=== PATIENT | female | born 1990 | race Caucasian/White ===

== ENCOUNTER 2016-08-17 23:19 | Emergency (ER) | payer BC, OTHER ==
[~2016-08-17] VITALS: Ht 180.3 cm; Wt 86.2 kg
[2016-08-17] MEDS ORDERED: ASPIRIN 81 MG TAB.CHEW PO ONE (23:45)
[2016-08-17] MEDS ORDERED: LORAZEPAM 1 MG TABLET. PO ONE (23:45)
[2016-08-17 23:53] LABS: NEG OBC UR NEG; POS OBC UR POS
[2016-08-18 00:12] VITALS: BP 132/75
--- NOTE | 2016-08-18 00:16 | PHYS DOC ---
Past Medical History Past Medical History: Anxiety, Depression, Migraines Past Surgical History: Tonsillectomy, Other Additional Past Surgical Histo: ADENOIDS Alcohol Use: Occasionally Drug Use: None Adult General Chief Complaint Chief Complaint: CHEST PAIN HPI HPI 26-year-old female presenting the emergency department with chest pain that started approximately 20 minutes prior to arrival. It is sharp shooting pain. Moderate intermittent and associated with mild shortness of breath. She has a history of panic attacks the past. She denies unilateral leg swelling hemoptysis personal or family history of DVT. No history of diabetes hypertension hyperlipidemia. Never smoker. Review of Systems Review of Systems Constitutional: Denies fever or chills Eyes: Denies change in visual acuity, redness, or eye pain [] HENT: Denies nasal congestion or sore throat [] Respiratory: Denies cough or shortness of breath Cardiovascular: No additional information not addressed in HPI [] GI: Denies abdominal pain, nausea, vomiting, bloody stools or diarrhea : Denies dysuria or hematuria Musculoskeletal: Denies back pain or joint pain [] Integument: Denies rash or skin lesions Neurologic: Denies headache, focal weakness or sensory changes Endocrine: Denies polyuria or polydipsia [] Current Medications Current Medications Current Medications Medications (Trade) Dose Ordered Sig/José Miguel Start Time Stop Time Status Last Admin Dose Admin Aspirin (Children'S Aspirin) 324 mg 1X ONCE 08/17/16 23:45 08/17/16 23:46 DC 08/17/16 23:49 324 MG Lorazepam (Ativan) 1 mg 1X ONCE 08/17/16 23:45 08/17/16 23:46 DC 08/17/16 23:49 1 MG Allergies Allergies Allergies Coded Allergies Type Severity Reaction Last Updated Verified No Known Drug Allergies 08/11/15 No Physical Exam Physical Exam Constitutional: Well developed, well nourished, no acute distress, non-toxic appearance. HENT: Normocephalic, atraumatic, bilateral external ears normal, oropharynx moist, no oral exudates, nose normal. Eyes: PERRLA, EOMI, conjunctiva normal, no discharge. Neck: Normal range of motion, no tenderness, supple, no stridor. [] Cardiovascular:Heart rate regular rhythm, no murmur Lungs & Thorax: Bilateral breath sounds clear to auscultation . No wheezing or crackles. Abdomen: Bowel sounds normal, soft, no tenderness, no masses, no pulsatile masses. Skin: Warm, dry, no erythema, no rash. [] Back: No tenderness, no CVA tenderness. Extremities: No tenderness, no cyanosis, no clubbing, ROM intact, no edema. Neurologic: Alert and oriented X 3, normal motor function, normal sensory function, no focal deficits noted. [] Psychologic: Affect normal, judgement normal, mood normal. [] Current Patient Data Vital Signs Vital Signs Date Time Temp Pulse Resp B/P Pulse Ox O2 Delivery O2 Flow Rate FiO2 08/18/16 00:12 94 20 132/75 97 Room Air 08/17/16 23:30 97.7 97.7 Lab Values Laboratory Tests Test 08/17/16 23:33 Urine Test Negative (NEG) EKG EKG Sinus rhythm with a tachycardic rate. Chase normal. Intervals normal. ST segments congruent. [] Radiology/Procedures Radiology/Procedures []Chest x-ray reviewed by myself shows no evidence of infiltrate or pneumothorax present. No acute cardiopulmonary process present. Course & Med Decision Making Course & Med Decision Making Pertinent Labs and Imaging studies reviewed. (See chart for details) 26-year-old female presenting to the emergency department today with chest pain. Vital signs showed mild hypertension. She denied a history of hypertension. Physical exam unremarkable. EKG and chest x-ray normal. The patient was given Ativan as she appeared anxious in the room. Her symptoms improved with Ativan and aspirin. She was up in discharged home to follow up with PCP over the next 2-3 days if her symptoms continued. Dragon Disclaimer Dragon Disclaimer This electronic medical record was generated, in whole or in part, using a voice recognition dictation system. Departure Departure Impression: Primary Impression: Chest pain Disposition: HOME, SELF-CARE Condition: STABLE Referrals: KEVIN FREEMAN (PCP) Patient Instructions: Chest Pain (Nonspecific) Additional Instructions: Thank you for allowing us to participate in your care today. Followup with your primary care physician in 3 days if your symptoms do not improve. If you do not have a primary care provider you can ask for a list of our primary care providers. Return to the emergency department you have any new or concerning findings. This should be evaluated by the primary care physician and any necessary consulting services for continued management within a few days after discharge. Return to emergency room if you have any new or concerning symptoms including but not limited to fever, chills, nausea, vomiting, intractable pain, any new rashes, chest pain, shortness of air, uncontrolled bleeding, difficulty breathing, and/or vision loss. RICCI KEVIN MD Aug 18, 2016 00:16
--- NOTE | 2016-08-18 08:43 | RAD ---
2 view CXR: Clinical indications: Chest pain today. Findings: No acute lung infiltrate or pleural effusion or pulmonary edema or lung mass or pneumothorax is seen. The heart size, pulmonary vasculature, mediastinum and both iris are unremarkable. The osseous structures appear intact. Impression: No acute radiographic abnormality is seen.
--- NOTE | 2016-08-18 11:40 | EKG ---
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
== END 2016-08-18 00:35 | disposition home or self-care (01) ==
LOC: ER 23:20
DX: R07.89 Other chest pain (principal); R06.02 Shortness of breath; F41.9 Anxiety disorder, unspecified; F32.9 Major depressive disorder, single episode, unspecified; G43.909 Migraine, unspecified, not intractable, without status migrainosus
CPT/HCPCS: 71020; 81025; 93005; 99285-25

== ENCOUNTER 2016-08-27 08:02 | Day surgery (SDC) | payer OTHER ==
[~2016-08-27] VITALS: Ht 177.8 cm; Wt 86.2 kg
[~2016-08-27 08:02] MED LIST: 0.9 % SODIUM CHLORIDE 50 ML VIAL. IJ ONE; ALPR0.25 PO; BUPIVACAINE-EPI 0.5%-1:200000 50 ML VIAL. ONE; CEFAZOLIN 2GM PREMIX 50 ML IV ONE; DEXAMETHASONE SOD PHOS 20 MG/5 ML VIAL. ONE; DIPHENHYDRAMINE 50 MG/ML VIAL IV PRN; DOCU100C5 PO; FENTANYL PF 100 MCG/2 ML VIAL. IV PRN; FENTANYL PF 250 MCG/5 ML VIAL. ONE; GLUCAGON,HUMAN RECOMBINANT 1 MG/ML VIAL. ONE; HALOPERIDOL LACT 5 MG/ML VIAL. IVP PRN; HYDROMORPHONE 2 MG/ML VIAL. IV PRN; IOHEXOL 300 MG/ML 50 ML VIAL. ONE; IV RINGERS,LACTATED 1000ML 1,000 ML IV SCH; LIDOCAINE 1% 1 ML SYRINGE. ID PRN; LIDOCAINE 2% 100 MG/5 ML DISP.SYRIN. ONE; MEPERIDINE PF 25 MG/ML VIAL. IV PRN; MIDAZOLAM HCL 2 MG/2 ML VIAL. IV PRN; MIDAZOLAM HCL 2 MG/2 ML VIAL. ONE; MORPHINE SULFATE 2 MG/ML DISP.SYRIN. IV PRN; MORPHINE SULFATE 4 MG/ML DISP.SYRIN. IV PRN; ONDANSETRON PF 4 MG/2 ML VIAL. IV PRN; ONDANSETRON PF 4 MG/2 ML VIAL. ONE; PROCHLORPERAZINE 10 MG/2 ML VIAL. IV PRN; PROPOFOL 20 ML IV ONE; ROCURONIUM 50 MG/5 ML VIAL. ONE; SUMA50TA3 PO; SURGICEL HEMOSTAT 4X8 EACH. ONE; TOPI50TA38 PO; VENL150C PO
[2016-08-27 08:48] LABS: NEG OBC UR NEG; POS OBC UR POS
[2016-08-27 09:15] LABS: HEMATOCRIT 37.7 % (36.0-47.0); HEMOGLOBIN 12.4 g/dL (12.0-15.5); RED BLOOD COUNT 4.16 x10^6/uL (3.50-5.40); RED CELL DISTRIBUTION WIDTH 12.9 % (11.5-14.5); WHITE BLOOD COUNT 5.4 x10^3/uL (4.0-11.0)
[2016-08-27 09:29] LABS: ALBUMIN 3.9 g/dL (3.4-5.0); CALCIUM 8.8 mg/dL (8.5-10.1); CREATININE 0.8 mg/dL (0.6-1.0); GFR 88.1; POTASSIUM 3.8 mmol/L (3.5-5.1)
[2016-08-27] MEDS ORDERED: GLYCOPYRROLATE 1 MG/5 ML VIAL. ONE (10:23)
[2016-08-27] MEDS ORDERED: NEOSTIGMINE METHYLSULFATE 5 MG/5 ML SYRINGE. ONE (10:23)
[2016-08-27] MEDS ORDERED: KETOROLAC 60 MG/2 ML SYRINGE FOR OR. ONE (10:32)
--- NOTE | 2016-08-27 10:36 | RAD ---
Intraoperative cholangiogram History: Left cholecystectomy. Procedure: A total of 3 fluoroscopic images of the right upper quadrant were obtained. The cystic duct was cannulated with surgeon and contrast was injected. Total fluoroscopic time was 0.2 minutes. Findings: The common hepatic bile duct and common bile duct are patent, without evidence of intraluminal filling defect or obstruction. Contrast empties normally into the duodenum. Impression: Unremarkable intraoperative cholangiogram. No evidence of choledocholithiasis.
--- NOTE | 2016-08-27 11:15 | PDOC ---
BRIEF OPERATIVE NOTE Date: Aug 27, 2016 Pre-Op Diagnosis symptomatic cholelithiasis Post-Op Diagnosis same Procedure Performed l/s cholecystectomy with cholangiograms Surgeon John Anesthesia Type: General Blood Loss 10cc IV Fluid 1400cc Specimens Obtained GB Findings supple GB with stones, normal grams Complications none Additional Remarks # [id number] DAR TEJEDA MD Aug 27, 2016 11:15
--- NOTE | 2016-08-27 11:16 | DISCH ---
DISCHARGE INSTRUCTIONS Condition on Discharge Condition on Discharge: Stable Activity After Discharge Activity Instructions for Disc: Activity as tolerated, Avoid exertion Lifting Instructions after Dis: No heavy lifting Driving Instructions after Dis: Do not drive (3-4 days) Diet after Discharge Diet after Discharge: Regular Wound Incision Care Wound/Incision Care: Ice to area for comfort Other wound/incision instructi: december shower Thursday Follow-Up Follow up with: John next week DAR TEJEDA MD Aug 27, 2016 11:16
[2016-08-27] MEDS ORDERED: OXYC-323 PO (11:24)
[2016-08-27] MEDS ORDERED: DOCU50CA9 PO (11:25)
[2016-08-27] MEDS ORDERED: OXYCODONE/APAP 5/325 TABLET. PO ONE (11:45)
[2016-08-27 13:28] VITALS: BP 111/59
--- NOTE | 2016-08-27 13:56 | OP ---
DATE OF SURGERY: 08/27/2016 PREOPERATIVE DIAGNOSIS: Symptomatic cholelithiasis. POSTOPERATIVE DIAGNOSIS: Symptomatic cholelithiasis. PROCEDURE: Laparoscopic cholecystectomy with cholangiogram. SURGEON: Dar Tejeda MD ANESTHESIA: General. ESTIMATED BLOOD LOSS: 10 mL. INTRAVENOUS FLUIDS: 1400 mL. INDICATIONS: The patient is a 26-year-old with postprandial right upper quadrant pain, nausea, and vomiting. Ultrasound shows stones. She is brought for cholecystectomy. OPERATIVE FINDINGS: Liver was smooth and sharp. The gallbladder was supple with multiple stones. Cholangiograms were normal. Visual inspection of the abdomen failed to reveal obvious abnormalities. DESCRIPTION OF PROCEDURE: The patient brought to the operating suite, given a general endotracheal anesthetic and the abdomen prepped and draped in the usual sterile fashion. An infraumbilical incision was infiltrated with local anesthetic, sharply incised and a 5-mm Visiport used to gain access into the abdominal cavity, taking care to avoid injury to abdominal contents. Pneumoperitoneum was established. Camera inserted and inspection carried out with results as noted above. With the table in reverse Trendelenburg rolled to left, the epigastric and midclavicular ports were placed under direct vision. An "alligator" grasper was used to the lateral port location to retract the gallbladder superolaterally. The cystic duct and cystic artery were identified. The cystic duct was clamped on the gallbladder side. Cholangiograms were made. These were normal. In light of this, the catheter was removed. The cystic duct was clipped x 3 and divided, taking care to avoid injury or compromise the common duct. The anterior and posterior branch of the cystic artery were isolated, clipped and divided and the gallbladder freed from the bed with cautery dissection and placed in an EndoCatch bag. Some small vessels in the fossa were controlled as encountered with clips. Good hemostasis was present. Gallbladder delivered through the epigastric incision. Epigastric incision closed with interrupted 0 Vicryl suture. Intra-abdominal pressure decreased to 6 cm of water. No bleeding from the epigastric closure or from the midclavicular port site after its removal or from the alligator site. Abdomen decompressed, camera slowly removed, no bleeding seen. Skin incisions closed with subcuticular 4-0 Monocryl. Steri-Strips and sterile dressings applied. The patient awakened from her anesthetic and taken to the recovery room in satisfactory condition. DAR TEJEDA MD DR: Romain JOB#: [id number] / [id number]
--- NOTE | 2016-08-28 13:24 | PATHOLOGY ---
PATHOLOGY REPORT * * * * * * * * FINAL DIAGNOSIS: Gallbladder, laparoscopic cholecystectomy: - Cholelithiasis. - Cholesterolosis. - Chronic cholecystitis. COMMENT: There is no evidence of malignancy. (VIETM:; d/t: 08/28/16) REPORT ELECTRONICALLY SIGNED BY: Abbe Hancock M.D. DATE/TIME: 08/28/2016 13:23 * * * * * * * * GROSS PATHOLOGY: Received in formalin labeled "Florence Renteria, gallbladder and contents," is a 10.3 x 2.8 x 2.7 cm, intact gallbladder with pink-moreno serosal surfaces. Opening the gallbladder reveals a velvety, pink-ingram, bile-stained mucosa and an average wall thickness of 0.1 cm. Calculi are present displaying a yellow-ingram and nodular appearance, and no masses are noted grossly. Application Systems Engineer sections from the body and fundus are submitted along with the proximal margin in cassette A1. (CAA; 08/27/2016) INITIAL CPT CODE(S): A; 94156 Professional services performed by [facility] [place] [address] Technical services performed by [facility] at [address] [place] [address] [address], [place] [address]. SPECIMEN(S) RECEIVED: A.Gallbladder and contents CLINICAL HISTORY: Gallstones PATIENT: FLORENCE RENTERIA /AGE: 12 1990 (Age: 26) PATIENT #: [id number] ALT CASE #: SPECIMEN COLLECTION DATE: 08/27/2016 SPECIMEN RECEIVED DATE: 08/27/2016 [facility] - [address] [place] [address] - PHONE: [phone] * * * END OF REPORT * * *
== END 2016-08-27 13:45 | disposition home or self-care (01) ==
LOC: SURG 08:02
PROVIDERS: ATTEND Surgery
DX: K80.80 Other cholelithiasis without obstruction (principal); F32.9 Major depressive disorder, single episode, unspecified; Z98.890 Other specified postprocedural states
CPT/HCPCS: 36415; 47563; 74300; 80048; 81025; 82040; 85027; 88304; C1769; C1782; J0690; J0780; J1100; J1885; J2250; J2405; J2704; J2710; J3010; J3490; J7030; J7120; Q9967; J1610

== ENCOUNTER → 2017-12-03 | Outpatient (CLI) | payer OTHER ==
[2017-12-03 11:31] LABS: ADD MAN DIFF? NO
[2017-12-03 11:39] LABS: BASO % 0 % (0-3); EOS % 0 % (0-3); HEMATOCRIT 36.7 % (36.0-47.0); HEMOGLOBIN 12.5 g/dL (12.0-15.5); LYMPH # 2.6 x10^3/uL (1.0-4.8); LYMPH % 30 % (24-48); MEAN CORPUSCULAR HEMOGLOBIN 30 pg (25-35); MEAN CORPUSCULAR HGB CONC 34 g/dL (31-37); MEAN CORPUSCULAR VOLUME 88 fL (79-100); MONO # 0.5 x10^3/uL (0.0-1.1); MONO % 6 % (0-9); NEUT # 5.4 x10^3uL (1.8-7.7); NEUT % 64 % (31-73); PLATELET COUNT 347 x10^3/uL (140-400); RED BLOOD COUNT 4.16 x10^6/uL (3.50-5.40); RED CELL DISTRIBUTION WIDTH 12.8 % (11.5-14.5); WHITE BLOOD COUNT 8.5 x10^3/uL (4.0-11.0)
[2017-12-03 11:59] LABS: ALK PHOS 85 U/L (46-116); ALT (SGPT) 18 U/L (14-59); ANION GAP 10 (6-14); AST (SGOT) 14 U/L (15-37); BLOOD UREA NITROGEN 13 mg/dL (7-20); BUN/CREATININE RATIO 16 (6-20); CALCIUM 8.7 mg/dL (8.5-10.1); CARBON DIOXIDE 27 mmol/L (21-32); CHLORIDE 104 mmol/L (98-107); CREATININE 0.8 mg/dL (0.6-1.0); GFR 87.4; GLUCOSE 97 mg/dL (70-99); POTASSIUM 3.8 mmol/L (3.5-5.1); SODIUM 141 mmol/L (136-145); TOTAL BILIRUBIN 0.4 mg/dL (0.2-1.0); TOTAL PROTEIN 8.1 g/dL (6.4-8.2)
[2017-12-03 12:08] LABS: VITAMIN-B12 412 pg/mL (247-911)
[2017-12-03 12:11] LABS: THYROID STIM HORMONE (TSH) 1.832 uIU/mL (0.358-3.74)
[2017-12-03 12:11] LABS: FREE T4 0.83 ng/dL (0.76-1.46)
== END | disposition home or self-care (01) ==
LOC: MRI 10:02
DX: M47.896 Other spondylosis, lumbar region (principal); M48.061 Spinal stenosis, lumbar region without neurogenic claudication; M51.16 Intervertebral disc disorders with radiculopathy, lumbar region; R20.2 Paresthesia of skin
CPT/HCPCS: 36415; 72141; 72148; 80053; 82306; 82607; 84439; 84443; 84481; 85025

== ENCOUNTER → 2017-12-31 | Day surgery (SDC) | payer OTHER ==
[~2017-12-31] MED LIST changes: -0.9 % SODIUM CHLORIDE 50 ML VIAL. IJ ONE; -ALPR0.25 PO; -BUPIVACAINE-EPI 0.5%-1:200000 50 ML VIAL. ONE; -CEFAZOLIN 2GM PREMIX 50 ML IV ONE; -DEXAMETHASONE SOD PHOS 20 MG/5 ML VIAL. ONE; -DIPHENHYDRAMINE 50 MG/ML VIAL IV PRN; -DOCU100C5 PO; -FENTANYL PF 100 MCG/2 ML VIAL. IV PRN; -FENTANYL PF 250 MCG/5 ML VIAL. ONE; -GLUCAGON,HUMAN RECOMBINANT 1 MG/ML VIAL. ONE; -HALOPERIDOL LACT 5 MG/ML VIAL. IVP PRN; -HYDROMORPHONE 2 MG/ML VIAL. IV PRN; -IOHEXOL 300 MG/ML 50 ML VIAL. ONE; -IV RINGERS,LACTATED 1000ML 1,000 ML IV SCH; -LIDOCAINE 1% 1 ML SYRINGE. ID PRN; -LIDOCAINE 2% 100 MG/5 ML DISP.SYRIN. ONE; +LIDOCAINE 2% PF Vial for OR 5 ML VIAL.; -MEPERIDINE PF 25 MG/ML VIAL. IV PRN; -MIDAZOLAM HCL 2 MG/2 ML VIAL. IV PRN; -MIDAZOLAM HCL 2 MG/2 ML VIAL. ONE; -MORPHINE SULFATE 2 MG/ML DISP.SYRIN. IV PRN; -MORPHINE SULFATE 4 MG/ML DISP.SYRIN. IV PRN; -ONDANSETRON PF 4 MG/2 ML VIAL. IV PRN; -ONDANSETRON PF 4 MG/2 ML VIAL. ONE; -PROCHLORPERAZINE 10 MG/2 ML VIAL. IV PRN; -PROPOFOL 20 ML IV ONE; +PROPOFOL 40 ML IV; -ROCURONIUM 50 MG/5 ML VIAL. ONE; -SUMA50TA3 PO; -SURGICEL HEMOSTAT 4X8 EACH. ONE; -TOPI50TA38 PO; -VENL150C PO
[2017-12-31 12:33] LABS: NEG OBC UR NEG; POS OBC UR POS; U PREG PATIENT NEGATIVE (NEG)
[2017-12-31] MEDS: IV RINGERS,LACTATED 1000ML 1,000 ML IV (12:47)
== END | disposition home or self-care (01) ==
LOC: ENDOS 12:06
DX: K64.0 First degree hemorrhoids (principal); K29.80 Duodenitis without bleeding; D64.9 Anemia, unspecified; F41.9 Anxiety disorder, unspecified; F32.9 Major depressive disorder, single episode, unspecified; E03.9 Hypothyroidism, unspecified; Z82.3 Family history of stroke; Z83.3 Family history of diabetes mellitus; Z82.49 Family history of ischemic heart disease and other diseases of the circulatory system; Z83.79 Family history of other diseases of the digestive system; Z72.89 Other problems related to lifestyle; Z79.899 Other long term (current) drug therapy; Z90.49 Acquired absence of other specified parts of digestive tract; Z98.890 Other specified postprocedural states; E66.9 Obesity, unspecified
CPT/HCPCS: 43239; 45380; 81025; 88305; J2704